=== PATIENT | female | born 1995 | race Hispanic/Latino ===

== ENCOUNTER 2017-02-24 16:41 | Inpatient (IN) | payer BC ==
[2017-02-24 17:32] VITALS: O2SAT 99
--- NOTE | 2017-02-24 17:37 | ED PDOC ---
HPI: Psych/Substance Abuse Time Seen by Provider: 02/24/17 17:36 Chief Complaint (Nursing): Psychiatric Evaluation Chief Complaint (Provider): crisis eval History Per: Patient Additional Complaint(s): 22 year old female presents to ED for crisis evaluation. Patient has been increasingly depressed and states she is hearing voices but she is not sure what the voices are saying to her. Patient denies suicidal or homicidal ideation but she states she feels very apathetic toward her life right now. She tried to get an appt with her psychiatrist but was unable for several weeks. She felt it best to come to ED today for prompt evaluation. Patient denies any etoh or drug use. Two months ago she was started on trintellex but she stopped taking it after 1 month because it was not working. Past Medical History Reviewed: Historical Data, Nursing Documentation, Vital Signs Vital Signs: Last Vital Signs Temp 99.1 F 02/24/17 17:30 Pulse 103 H 02/24/17 17:30 Resp 18 02/24/17 17:30 BP 144/87 02/24/17 17:30 Pulse Ox 99 02/24/17 17:30 - Medical History PMH: Depression - Surgical History Surgical History: No Surg Hx - Family History Family History: States: No Known Family Hx - Living Arrangements Living Arrangements: With Friends/Others - Social History Current smoker - smoking cessation education provided: No Alcohol: Social Drugs: Denies - Allergies Allergies/Adverse Reactions: Allergies Allergy/AdvReac Type Severity Reaction Status Date / Time No Known Allergies Allergy Verified 02/24/17 17:32 Review of Systems ROS Statement: Except As Marked, All Systems Reviewed And Found Negative Psych: Positive for: Depression, Psychosis (hearing voices). Negative for: Suicidal ideation Physical Exam - Reviewed Nursing Documentation Reviewed: Yes Vital Signs Reviewed: Yes - Physical Exam Appears: Positive for: Well Skin: Negative for: Rash Eye Exam: Positive for: Normal appearance Cardiovascular/Chest: Positive for: Regular Rate, Rhythm Respiratory: Positive for: Normal Breath Sounds. Negative for: Wheezing, Respiratory Distress Neurologic/Psych: Positive for: Alert, Oriented, Mood/Affect (flat) - Laboratory Results Result Diagrams: 02/24/17 18:40 02/24/17 18:40 Urine POC: Negative - ECG O2 Sat by Pulse Oximetry: 99 Pulse Ox Interpretation: Normal - Other Rad CXR X-Ray: Interpreted by Me, Viewed By Me X-Ray Interpretation: no acute finding Medical Decision Making Medical Decision Makin22 year old here for crisis eval Plan: Crisis consult CBC CMP BAL UDS UA test CXR As per crisis counselor and psychiatrist mercerizing range controller, Dr. Giron, patient does meet criteria for admission. Patient agrees to stay and signed herself in. Patient is medically stable for psychiatric admission. Disposition - Clinical Impression Clinical Impression: Depression - Patient ED Disposition Is Patient to be Admitted: Yes - Disposition Disposition Time: 18:45 Condition: FAIR Forms: [employer] - Pt Status Changed To: Hospital Disposition Of: Inpatient - Admit Certification Admit to Inpatient:: After my assessment, the patient will require hospitalization for at least two midnights. This is because of the severity of symptoms shown, intensity of services needed, and/or the medical risk in this patient being treated as an outpatient. - POA Present On Arrival: None
[2017-02-24 18:56] LABS: BASO # 0.1 K/uL (0.0-0.2); BASO % 0.8 % (0.0-2.0); EOS # 0.1 K/uL (0.0-0.7); EOS % 1.2 % (0.0-4.0); HEMATOCRIT 40.7 % (34.0-47.0); LYMPH # 2.1 K/uL (1.0-4.3); MEAN CORPUSCULAR HEMOGLOBIN 28.9 pg (27.0-31.0); MEAN CORPUSCULAR HGB CONC 32.5 g/dL (33.0-37.0); MEAN PLATELET VOLUME 8.7 fl (7.2-11.7); MONO # 0.6 K/uL (0.0-0.8); NRBC % 0.1 % (0.0-0.0); RED CELL DISTRIBUTION WIDTH 12.8 % (11.5-14.5); WHITE BLOOD COUNT 6.9 K/uL (4.8-10.8)
[2017-02-24 19:09] LABS: RBC URINE 1 /hpf (0-3); URINE BACTERIA FEW (<OCC); URINE BILIRUBIN NEGATIVE (NEGATIVE); URINE BLOOD NEGATIVE (NEGATIVE); URINE COLOR YELLOW (YELLOW); URINE GLUCOSE (UA) NEG (Normal); URINE KETONE NEGATIVE (NEGATIVE); URINE LEUKOCYTE ESTERASE NEG Leu/uL (Negative); URINE PROTEIN NEGATIVE (NEGATIVE); URINE UROBILINOGEN 0.2-1.0 mg/dL (0.2-1.0); WBC URINE < 1 /hpf (0-5)
[2017-02-24 19:10] LABS: ALB/GLOB RATIO 1.6 (1.0-2.1); ALCOHOL SERUM < 10 mg/dl (0-10); ALKALINE PHOSPHATASE 54 U/L (38-126); ALT/SGPT 27 U/L (9-52); AST/SGOT 26 U/L (14-36); BILIRUBIN,TOTAL 0.7 mg/dl (0.2-1.3); BLOOD UREA NITROGEN 12 mg/dl (7-17); CALCIUM 9.3 mg/dL (8.4-10.2); CARBON DIOXIDE 26 mmol/L (22-30); CHLORIDE 106 mmol/L (98-107); GFR AFRICAN-AMERICAN > 60; GLUCOSE,RANDOM 90 mg/dL (65-105); POTASSIUM 4.1 MMOL/L (3.6-5.0); SODIUM 142 mmol/l (132-148); TOTAL PROTEIN 7.3 G/DL (6.3-8.2)
[2017-02-24] MEDS ORDERED: Alum-Mag Hydrox-Simethicone Susp (30 mL) PO PRN (21:55)
[2017-02-24] MEDS ORDERED: DiphenhydrAMINE 50 mg/ml Inj IM PRN (21:55)
[2017-02-24] MEDS ORDERED: Magnesium Hydroxide Susp 30 ml UD PO PRN (21:55)
--- NOTE | 2017-02-24 22:24 | PCM.BM ---
<Chelsy Weinstein - Last Filed: 02/24/17 22:22> Treatment Plan Problems - Problems identified on initial assessmt Hopelessness/ Helplessness Date Initiated: 02/24/17 Time Initiated: 22:22 Assessment reference: NA Status: Active Altered Sleep Patterns Date Initiated: 02/24/17 Time Initiated: 22:23 Assessment reference: NA Status: Active Treatment assets and liabiliti Patient Assests: cooperative, self-reliant, ADL independent, good support system Patient Liabilities: substance abuse - Milieu Protocol Maintain good personal hygiene: daily Encourage regular showers, daily Remind patient to perform daily oral care Conduct patient checks and document Observation sheet: Q15 minutes Maintain personal safety: every shift Educate patient to report safety concerns to staff, every shift Monitor environment for contraband/sharps Medication safety: Monitor for expected outcome, potential side effects: every shift, Assess barriers to learning: every shift, Assess readiness for medication education: every shift <Fam Donahue - Last Filed: 02/26/17 13:24> Family Contact Family contact: Patient agrees to contact, Family has been contacted by patient , Telephone contact initiated by staff Family contact name: Lilian Toledo (Mother) Family contacted how many times per week?: 4 Family contact comment: Account Services Specialist left message for mother to return call to obtain collateral and discuss pt's treatment on unit. Awaiting a return call. - Outside Agency Agency 1 Care involvment: Following patient during stay, Information-sharing Agency contact name: [facility] contact number: [phone] - Goals for Treatment Patient goals for treatment: Pt appeared too anhedonic to express goals. Discharge/Continuing Care - Education Needs Education Needs: Family Medication, Family Diagnosis/Disease Process, Family Placement options, Patient Medication, Patient Diagnosis/Disease Process, Patient Coping Skills, Patient Placement options, Patient Aftercare Safety Plan - Discharge Discharge Criteria: Tolerates medication w/o severe side effects, Free of Suicidal thoughts, Free of paranoid thoughts, Ability to care for self, Reduction of target symptoms Discharge to:: Home - Treatment Team Participation Discussed with Family/SO: Yes <Sophia Franz - Last Filed: 02/27/17 10:41> - Diagnosis (1) Bipolar 1 disorder, depressed Status: Acute Interventions: psychotherapy, pharmacotherapy 02/27/17 10:41
[2017-02-25 07:42] LABS: T4 6.37 ug/dl (5.5-11.0)
[2017-02-25 07:56] LABS: THYROID STIMULATING HORMONE 2.07 mIU/ML (0.46-4.68)
--- NOTE | 2017-02-25 10:42 | RAD ---
HISTORY: clearance COMPARISON: None available. TECHNIQUE: Chest, one view. FINDINGS: LUNGS: No focal consolidation. Please note that chest x-ray has limited sensitivity for the detection of pulmonary masses. PLEURA: No significant pleural effusion identified. No definite pneumothorax . CARDIOVASCULAR: The cardiomediastinal silhouette appears within normal limits of size. OSSEOUS STRUCTURES: No acute osseous abnormality identified. VISUALIZED UPPER ABDOMEN: Unremarkable. OTHER FINDINGS: Bilateral nipple rings. IMPRESSION: No focal consolidation, significant pleural effusion, or definite pneumothorax identified.
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
--- NOTE | 2017-02-26 14:18 | PCM.PYCHPN ---
Psychiatric Progress Note - Psychiatric Progress Note Patient seen today, length of contact: pt evaluated discussed with team chart reviewed Patient Chief Complaint: I finally was able to sleep last night Problems Identified/Issues Discussed: pt on evaluation continues to present with depressed mood and affect, reported better sleep, no reported side effects of medications passive suicidal ideations without a plan on the unit, denied homicidal ideations, reported clearing off of the perceptual disturbances Medical Problems: non reported DSM 5 Symptoms Update: bipolar disorder depressed bulimia nervosa Medication Change: Yes (increase abilify to 7mg) Medical Record Reviewed: Yes Mental Status Examination - Cognitive Function Orientation: Person, Place, Situation, Time Attention: WNL Concentration: WNL Association: WNL Fund of Knowledge: [facility] Decription of patient's judgement and insights: fair insight and judgement - Mood Mood: Depressed - Affect Affect: Constricted, Depressed - Speech Speech: Soft - Formal Thought Process Formal Thought Process: Hallucinations Psychotic Thoughts and Behaviors: pt reported clearing off of the auditory hallucinations - Suicidal Ideation Suicidal Ideation: No - Homicidal Ideation Homicidal Ideation: No Goal/Treatment Plan - Goal/Treatment Plan Need for Continued Stay: Severe depression anxiety, Discharge may exacerbated symptoms Progress Toward Problem(s) and Goals/Treatment Plan: increase abilify to 7mg daily TRAZODONE 100MG QHS FOR INSOMNIA CBT AND GROUP THERAPY REFERRAL TO PARTIAL PROGRAM ON DISCHARGE Estimated Date of D/C: 03/01/17
--- NOTE | 2017-02-27 10:47 | PCM.PYCHPN ---
Psychiatric Progress Note - Psychiatric Progress Note Patient seen today, length of contact: pt evaluated discussed with team chart reviewed Patient Chief Complaint: I am feeling better Problems Identified/Issues Discussed: pt on evaluation appears less depressed with brighter affect, reported better sleep, no reported side effects of medications denied suicidal ideations , denied homicidal ideations, reported clearing off of the perceptual disturbances Medical Problems: non reported DSM 5 Symptoms Update: bipolar disorder depressed Medication Change: Yes (increase abilify to 10mg) Medical Record Reviewed: Yes Mental Status Examination - Cognitive Function Orientation: Person, Place, Situation, Time Attention: WNL Concentration: WNL Association: [facility] Fund of Knowledge: [facility] Decription of patient's judgement and insights: fair insight and judgement - Mood Mood: Depressed - Affect Affect: Constricted, Depressed - Speech Speech: Soft - Formal Thought Process Formal Thought Process: Hallucinations Psychotic Thoughts and Behaviors: pt reported clearing off of the auditory hallucinations - Suicidal Ideation Suicidal Ideation: No - Homicidal Ideation Homicidal Ideation: No Goal/Treatment Plan - Goal/Treatment Plan Need for Continued Stay: Severe depression anxiety, Discharge may exacerbated symptoms Progress Toward Problem(s) and Goals/Treatment Plan: increase abilify to 10mg daily TRAZODONE 100MG QHS FOR INSOMNIA CBT AND GROUP THERAPY REFERRAL TO PARTIAL PROGRAM ON DISCHARGE Estimated Date of D/C: 03/01/17
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
[2017-03-01 09:27] VITALS: BP 139/69; PULSE 93; RESP 20; TEMP 96.3
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
== END 2017-03-01 13:08 | disposition home or self-care (01) | DRG 885 ==
LOC: H.ER 16:41 → H.ERHOLD 19:42 → H.PSYCH 21:27
PROVIDERS: ADMIT Psychiatry & Neurology Psychiatry; ATTEND Psychiatry & Neurology Psychiatry
PROC: GZHZZZZ Group Psychotherapy (ICD-10-PCS; principal; 2017-02-24)
PROC: GZ58ZZZ Individual Psychotherapy, Cognitive-Behavioral (ICD-10-PCS; 2017-02-24)
PROC: GZ56ZZZ Individual Psychotherapy, Supportive (ICD-10-PCS; 2017-02-24)
DX: F31.9 Bipolar disorder, unspecified (principal); F50.2 Bulimia nervosa; Q23.1 Congenital insufficiency of aortic valve; Z91.14 Patient's other noncompliance with medication regimen; F41.9 Anxiety disorder, unspecified; F43.10 Post-traumatic stress disorder, unspecified; Z91.5 Personal history of self-harm; G47.00 Insomnia, unspecified